=== PATIENT | male | born 1945 | race Hispanic/Latino ===

== ENCOUNTER 2021-03-02 12:59 | Emergency (ER) | payer MEDICARE, OTHER ==
[~2021-03-02] VITALS: Ht 167.6 cm; Wt 73.9 kg
[~2021-03-02 12:59] MED LIST: AMLODIPINE BESYL5 MG PO; ATORVASTATIN CA20 MG PO; CYCLOBENZAPRINE5 MG PO; GLIPIZIDE10 MG PO; METFORMIN HCL500 MG PO; OMEPRAZOLE40 MG PO; PAROXETINE HCL20 MG PO; TYLENOL WITH C1 EACH PO
[2021-03-02 14:14] LABS: BASOPHILS # (AUTO) 0.1 (0.0-0.1); BASOPHILS % 0.4 % (0.0-1.0); EOSINOPHILS # (AUTO) 0.2 (0.0-0.4); HEMATOCRIT 36.4 % (38.2-49.6); HEMOGLOBIN 11.8 g/dL (14.0-18.0); LYMPHOCYTES # (AUTO) 3.5 (1.0-3.2); LYMPHOCYTES % 28.1 % (18.0-39.1); MEAN CORPUSCULAR HEMOGLOBIN 27.4 pg (28-32); MEAN CORPUSCULAR HGB CONC 32.4 g/dL (31-35); MEAN CORPUSCULAR VOLUME 84.7 fL (81-99); MONOCYTES # (AUTO) 0.9 (0.2-0.8); MONOCYTES % 7.3 % (4.4-11.3); NEUTROPHILS # (AUTO) 7.6 (2.1-6.9); NEUTROPHILS % 61.9 % (38.7-80.0); PLATELET COUNT 299 x10e3/uL (140-360); RED CELL DISTRIBUTION WIDTH 15.9 % (11.7-14.4)
[2021-03-02 14:23] LABS: ANION GAP 15.2 mmol/L (8-16); CALCIUM 8.6 mg/dL (8.4-10.2); CREATININE, SERUM 1.31 mg/dL (0.72-1.25); POTASSIUM 5.2 mmol/L (3.5-5.1)
[2021-03-02] MEDS ORDERED: SODIUM CHLORIDE 0.9% 1000ML 1,000 ML IV SCH (14:45)
[2021-03-02 16:36] LABS: ANION GAP 14.8 mmol/L (8-16); BLOOD UREA NITROGEN 27 mg/dL (7-26); BUN/CREATININE RATIO 23 (6-25); CALCIUM 8.2 mg/dL (8.4-10.2); CARBON DIOXIDE 22 mmol/L (22-29); CHLORIDE 106 mmol/L (98-107); CREATININE, SERUM 1.15 mg/dL (0.72-1.25); EST GLOMERULAR FILTRATION RATE > 60 ML/MIN (60-); POTASSIUM 4.8 mmol/L (3.5-5.1); SODIUM 138 mmol/L (136-145)
[2021-03-02 16:38] LABS: GLUCOSE 59 mg/dL (74-118)
== END 2021-03-02 17:38 | disposition home or self-care (01) ==
LOC: ER 13:35
DX: E87.5 Hyperkalemia (principal); E11.649 Type 2 diabetes mellitus with hypoglycemia without coma; I10 Essential (primary) hypertension; E78.5 Hyperlipidemia, unspecified; R94.31 Abnormal electrocardiogram [ECG] [EKG]
CPT/HCPCS: 36415; 80048; 82948; 85025; 93005; 99284; J7030

== ENCOUNTER 2021-08-11 12:34 | Emergency (ER) | payer MEDICARE, OTHER ==
[~2021-08-11] VITALS: Ht 167.6 cm; Wt 73.9 kg
== END 2021-08-11 14:21 | disposition home or self-care (01) ==
LOC: ER 13:01
DX: M79.672 Pain in left foot (principal); E11.40 Type 2 diabetes mellitus with diabetic neuropathy, unspecified; I10 Essential (primary) hypertension; E78.5 Hyperlipidemia, unspecified
CPT/HCPCS: 99283

== ENCOUNTER 2022-07-04 10:15 | Emergency (ER) | payer MEDICARE, OTHER ==
[~2022-07-04] VITALS: Ht 167.6 cm; Wt 73.9 kg
[2022-07-04] MEDS ORDERED: IBUPROFEN 600 MG TAB PO STA (10:40)
[2022-07-04] MEDS ORDERED: NAPROXEN375 M1 PO (12:04)
== END 2022-07-04 12:08 | disposition home or self-care (01) ==
LOC: ER 10:21
DX: S20.213A Contusion of bilateral front wall of thorax, initial encounter (principal); E11.9 Type 2 diabetes mellitus without complications; I10 Essential (primary) hypertension; E78.5 Hyperlipidemia, unspecified; W01.0XXA Fall on same level from slipping, tripping and stumbling without subsequent striking against object, initial encounter; Y93.K1 Activity, walking an animal; Z79.84 Long term (current) use of oral hypoglycemic drugs
CPT/HCPCS: 71111; 99283

== ENCOUNTER 2024-05-18 13:01 | Inpatient (IN) | payer MEDICARE, OTHER ==
[2024-05-18] VITALS (12 sets, daily range): BP systolic 150–182; BP diastolic 64–165; PULSE 46–85; RESP 9–20; TEMP 97.3–97.9; O2SAT 95–99
[~2024-05-18] VITALS: Ht 167.6 cm; Wt 75.3 kg
[~2024-05-18 13:01] MED LIST changes: +NAPROXEN375 M1 PO
[2024-05-18] MEDS: MUPIROCIN 2% OINT 22 GM TUBE TOP SCH (13:30)
[2024-05-18 13:31] LABS: BASOPHILS % 0.3 % (0.0-1.0); EOSINOPHILS # (AUTO) 0.2 (0.0-0.4); HEMATOCRIT 27.9 % (38.2-49.6); HEMOGLOBIN 9.3 g/dL (14.0-18.0); LYMPHOCYTES # (AUTO) 2.3 (1.0-3.2); LYMPHOCYTES % 19.5 % (18.0-39.1); MEAN CORPUSCULAR HEMOGLOBIN 31.7 pg (28-32); MEAN CORPUSCULAR HGB CONC 33.3 g/dL (31-35); MEAN CORPUSCULAR VOLUME 95.2 fL (81-99); MONOCYTES # (AUTO) 0.6 (0.2-0.8); MONOCYTES % 4.9 % (4.4-11.3); NEUTROPHILS # (AUTO) 8.4 (2.1-6.9); NEUTROPHILS % 72.7 % (38.7-80.0); PLATELET COUNT 279 x10e3/uL (140-360); RED BLOOD COUNT 2.93 x10e6/uL (4.3-5.7); RED CELL DISTRIBUTION WIDTH 12.8 % (11.7-14.4); WHITE BLOOD COUNT 11.53 x10e3/uL (4.8-10.8)
[2024-05-18 13:47] LABS: INR 1.01
[2024-05-18] MEDS: ASPIRIN 81 MG CHEW TAB PO ONE (13:48)
[2024-05-18 14:03] LABS: ALANINE AMINOTRANSFERASE 66 IU/L (0-55); ALBUMIN 2.9 g/dL (3.5-5.0); ALBUMIN/GLOBULIN RATIO 1.1 (0.8-2.0); ALKALINE PHOSPHATASE 94 IU/L (40-150); BILIRUBIN,TOTAL 0.2 mg/dL (0.2-1.2); BLOOD UREA NITROGEN 46 mg/dL (7-26); BUN/CREATININE RATIO 17 (6-25); CALCIUM 7.9 mg/dL (8.4-10.2); CARBON DIOXIDE 19 mmol/L (22-29); CHLORIDE 105 mmol/L (98-107); EST GLOMERULAR FILTRATION RATE 23 ML/MIN (>=60); GLUCOSE 257 mg/dL (74-118); SODIUM 131 mmol/L (136-145); TOTAL PROTEIN 5.6 g/dL (6.5-8.1)
[2024-05-18 14:09] LABS: TROPONIN I < 0.001 ng/mL (0-0.300)
[2024-05-18] MEDS ORDERED: DEXTROSE 50% SYRINGE 50 ML IV ONE (14:17)
[2024-05-18] MEDS ORDERED: SODIUM BICARBONATE 8.4% SYRING 50 ML ONE (14:17)
[2024-05-18] MEDS ORDERED: INSULIN REGULAR, HUMAN 100 UNIT/1 ML ONE (14:18)
[2024-05-18] MEDS: CALCIUM GLUC 1 G/50 ML NACL 50 ML IV SCH ×3 (15:00→19:00)
[2024-05-18] MEDS: ALBUTEROL SULF 0.083% NEB SOLN 3 ML NEB NEB STA ×2 (15:18→17:41)
[2024-05-18] MEDS ORDERED: DEXTROSE 50% SYRINGE 50 ML IV PRN (15:30)
[2024-05-18] MEDS ORDERED: ONDANSETRON HCL INJ 2MG/ML 2ML 2 MG/ML VIAL IV PRN (15:30)
[2024-05-18] MEDS: DEXTROSE 50% SYRINGE 50 ML IV STA ×2 (16:09→17:28)
[2024-05-18] MEDS: SODIUM BICARBONATE 8.4% INJ 50 ML SYR IV STA ×2 (16:09→17:32)
[2024-05-18] MEDS: INSULIN REGULAR, HUMAN 100 UNIT/1 ML IV ONE ×2 (16:09→17:36)
[2024-05-18] MEDS: INSULIN REGULAR, HUMAN 100 UNIT/1 ML SQ SCH (16:30)
[2024-05-18 20:05] LABS: ANION GAP 15.1 mmol/L (8-16); CALCIUM 8.8 mg/dL (8.4-10.2); CREATININE, SERUM 2.35 mg/dL (0.72-1.25); POTASSIUM 5.1 mmol/L (3.5-5.1)
[2024-05-18] MEDS: GENTAMICIN SULFATE 40 MG/ML 2 ML VIAL ONE (20:55)
[2024-05-18] MEDS: SODIUM CHLORIDE 0.9% 250ML 0 ML ONE (20:56)
[2024-05-18] MEDS: LIDOCAINE HCL 2% LOCAL 20 ML VIAL ONE (20:56)
[2024-05-18] MEDS: SODIUM CHLORIDE 0.9% 1000ML 0 ML ONE (20:56)
[2024-05-18] MEDS: SODIUM CHLORIDE 0.9% 500ML 0 ML ONE (20:56)
[2024-05-18] MEDS: Vancomycin IV 1 GM VIAL ONE (20:56)
[2024-05-18] MEDS: FENTANYL CITRATE/PF 100MCG/2 ML INJ ONE (20:57)
[2024-05-18] MEDS: IOPAMIDOL 610MG/1ML 300 MG/ML VIAL IV ONE (20:57)
[2024-05-18] MEDS: MIDAZOLAM HCL 2 MG/2 ML VIAL ONE (20:57)
[2024-05-18] MEDS: FUROSEMIDE INJ 10 MG/ML 2 ML VIAL IV ONE (20:59)
[2024-05-18] MEDS: AMLODIPINE BESYLATE 5 MG TAB PO SCH (21:00)
[2024-05-18] MEDS: INSULIN GLARGINE 100 UNITS/ML VIAL SQ SCH (21:00)
[2024-05-18] MEDS: SODIUM BICARBONATE 8.4% SYRING 50 ML in SODIUM CHLORIDE 0.45% 1,000 ML IV ONE (21:00)
[2024-05-18] MEDS: SOD POLYSTYRENE SULFONATE SUSP 15 GM/60 ML BTL PO ONE ×2 (21:04)
[2024-05-18] MEDS: ATORVASTATIN 20 MG TAB PO SCH (21:07)
[2024-05-19] VITALS (17 sets, daily range): BP systolic 137–178; BP diastolic 56–156; PULSE 45–66; RESP 6–26; TEMP 97.9–98.3; O2SAT 87–100
[2024-05-19] MEDS: SOD POLYSTYRENE SULFONATE SUSP 15 GM/60 ML BTL ONE (04:16)
[2024-05-19 06:29] LABS: BILIRUBIN,URINE NEGATIVE (NEGATIVE); CLARITY,URINE CLEAR (CLEAR); COLOR,URINE YELLOW (YELLOW); GLUCOSE, URINE NEGATIVE (NEGATIVE); KETONES,URINE NEGATIVE (NEGATIVE); LEUKOCYTE ESTERASE ,URINE NEGATIVE (NEGATIVE); NITRITE,URINE NEGATIVE (NEGATIVE); PH,URINE 7.5 (5 - 7); PROTEIN,URINE DIPSTICK 2+ (NEGATIVE); URINE UROBILINOGEN 0.2 mg/dL (0.2 - 1)
[2024-05-19] MEDS ORDERED: ATROPINE SULFATE 1 MG/ML VIAL IV PRN (06:35)
[2024-05-19 06:47] LABS: BACTERIA,URINE RARE /HPF; RBC,URINE 21-50 /HPF (0-5); WBC,URINE (MAN) 0-5 /HPF (0-5)
[2024-05-19 07:03] LABS: BASOPHILS % 0.2 % (0.0-1.0); EOSINOPHILS # (AUTO) 0.3 (0.0-0.4); EOSINOPHILS % 2.4 % (0.0-6.0); HEMATOCRIT 32.6 % (38.2-49.6); HEMOGLOBIN 10.7 g/dL (14.0-18.0); MEAN CORPUSCULAR HEMOGLOBIN 31.1 pg (28-32); MEAN CORPUSCULAR HGB CONC 32.8 g/dL (31-35); MEAN CORPUSCULAR VOLUME 94.8 fL (81-99); MONOCYTES # (AUTO) 0.8 (0.2-0.8); MONOCYTES % 6.2 % (4.4-11.3); NEUTROPHILS # (AUTO) 8.5 (2.1-6.9); NEUTROPHILS % 66.8 % (38.7-80.0); PLATELET COUNT 312 x10e3/uL (140-360); RED BLOOD COUNT 3.44 x10e6/uL (4.3-5.7); RED CELL DISTRIBUTION WIDTH 12.7 % (11.7-14.4); WHITE BLOOD COUNT 12.65 x10e3/uL (4.8-10.8)
[2024-05-19 07:58] LABS: ANION GAP 13.5 mmol/L (8-16); CALCIUM 8.3 mg/dL (8.4-10.2); CREATININE, SERUM 1.82 mg/dL (0.72-1.25); POTASSIUM 4.5 mmol/L (3.5-5.1)
[2024-05-19 08:20] LABS: MAGNESIUM 1.9 MG/DL (1.3-2.1); PHOSPHORUS 3.8 MG/DL (2.3-4.7)
[2024-05-19] MEDS: PANTOPRAZOLE SOD 40 MG TABEC PO SCH (08:48)
[2024-05-19] MEDS: PAROXETINE HCL 20 MG TAB PO SCH (08:49)
[2024-05-19 08:55] LABS: THYROID STIMULATING HORMONE 0.965 uIU/mL (0.350-4.940)
[2024-05-19 09:00] LABS: CREATINE KINASE 118 IU/L (30-200)
[2024-05-19 09:13] LABS: TROPONIN I < 0.001 ng/mL (0-0.300)
[2024-05-19] MEDS ORDERED: FLOMAX0.4 MG PO (15:48)
[2024-05-19] MEDS ORDERED: FAMOTIDINE20 MG PO (15:49)
[2024-05-19] MEDS ORDERED: DIOVAN80 MG PO (15:52)
[2024-05-19 16:22] LABS: CREATINE KINASE 108 IU/L (30-200)
[2024-05-19 16:30] LABS: TROPONIN I < 0.001 ng/mL (0-0.300)
[2024-05-19] MEDS ORDERED: COREG12.5 MG PO (18:44)
[2024-05-19] MEDS ORDERED: PRECOSE25 MG PO (18:46)
[2024-05-19] MEDS ORDERED: MULTI-VITAMIN1 EACH PO (18:48)
[2024-05-19] MEDS ORDERED: VITAMIN D325 MCG (18:48)
[2024-05-19] MEDS ORDERED: FUROSEMIDE40 MG PO (18:49)
[2024-05-20] VITALS (11 sets, daily range): BP systolic 124–175; BP diastolic 51–77; PULSE 55–79; RESP 12–19; TEMP 98–99.1; O2SAT 95–100
[2024-05-20 06:28] LABS: BASOPHILS % 0.2 % (0.0-1.0); EOSINOPHILS # (AUTO) 0.4 (0.0-0.4); EOSINOPHILS % 3.3 % (0.0-6.0); HEMATOCRIT 32.2 % (38.2-49.6); HEMOGLOBIN 10.7 g/dL (14.0-18.0); LYMPHOCYTES # (AUTO) 2.7 (1.0-3.2); LYMPHOCYTES % 23.5 % (18.0-39.1); MEAN CORPUSCULAR HGB CONC 33.2 g/dL (31-35); MEAN CORPUSCULAR VOLUME 93.3 fL (81-99); MONOCYTES # (AUTO) 0.8 (0.2-0.8); MONOCYTES % 6.5 % (4.4-11.3); NEUTROPHILS # (AUTO) 7.7 (2.1-6.9); NEUTROPHILS % 66.2 % (38.7-80.0); PLATELET COUNT 305 x10e3/uL (140-360); RED BLOOD COUNT 3.45 x10e6/uL (4.3-5.7); RED CELL DISTRIBUTION WIDTH 12.5 % (11.7-14.4); WHITE BLOOD COUNT 11.66 x10e3/uL (4.8-10.8)
[2024-05-20 06:55] LABS: ALBUMIN 3.2 g/dL (3.5-5.0); ALBUMIN/GLOBULIN RATIO 1.1 (0.8-2.0); ANION GAP 13.7 mmol/L (8-16); BILIRUBIN,TOTAL 0.3 mg/dL (0.2-1.2); CALCIUM 8.3 mg/dL (8.4-10.2); CREATININE, SERUM 1.94 mg/dL (0.72-1.25); POTASSIUM 4.7 mmol/L (3.5-5.1); TOTAL PROTEIN 6.1 g/dL (6.5-8.1)
[2024-05-20] MEDS: HYDRALAZINE HCL 20 MG/ML VIAL IV PRN (10:10)
[2024-05-20] MEDS: NIFEDIPINE CR 30 MG TAB PO ONE (10:16)
[2024-05-20] MEDS ORDERED: ONDANSETRON HCL 4 MG ORAL DISINTEGRATING TAB PO PRN (16:00)
== END 2024-05-20 17:55 | disposition home or self-care (01) | DRG 641 ==
LOC: ER 13:17 → ERHOLD 13:35 → ICU 18:36 → MED/SURG 05-20 06:31
PROVIDERS: ADMIT Internal Medicine; ATTEND Internal Medicine
DX: E87.5 Hyperkalemia (principal); N39.0 Urinary tract infection, site not specified; N17.9 Acute kidney failure, unspecified; E11.22 Type 2 diabetes mellitus with diabetic chronic kidney disease; E11.42 Type 2 diabetes mellitus with diabetic polyneuropathy; I12.9 Hypertensive chronic kidney disease with stage 1 through stage 4 chronic kidney disease, or unspecified chronic kidney disease; E11.65 Type 2 diabetes mellitus with hyperglycemia; N18.32 Chronic kidney disease, stage 3b; R00.1 Bradycardia, unspecified; R55 Syncope and collapse; E78.5 Hyperlipidemia, unspecified; K21.9 Gastro-esophageal reflux disease without esophagitis; Z11.52 Encounter for screening for COVID-19; Z79.84 Long term (current) use of oral hypoglycemic drugs
CPT/HCPCS: 36415; 71045; 80048; 80053; 81001; 82550; 82948; 83036; 83735; 83880; 84100; 84443; 84484; 85025; 85610; 93005; 93306; 94799; 96372; 99285; J0360; J1580; J1815; J2001; J2250; J7030; J7040; J7050; J7799; U0002

== ENCOUNTER 2024-07-15 12:21 | Inpatient (IN) | payer MEDICARE, OTHER ==
[~2024-07-15] VITALS: Ht 167.6 cm; Wt 73.5 kg
[~2024-07-15 12:21] MED LIST changes: +COREG12.5 MG PO; +DIOVAN80 MG PO; +FAMOTIDINE20 MG PO; +FLOMAX0.4 MG PO; +FUROSEMIDE40 MG PO; +MULTI-VITAMIN1 EACH PO; +PRECOSE25 MG PO; +VITAMIN D325 MCG
[2024-07-15 13:03] LABS: BASOPHILS % 0.2 % (0.0-1.0); EOSINOPHILS # (AUTO) 0.3 (0.0-0.4); EOSINOPHILS % 2.1 % (0.0-6.0); HEMATOCRIT 30.4 % (38.2-49.6); HEMOGLOBIN 10.1 g/dL (14.0-18.0); LYMPHOCYTES # (AUTO) 3.3 (1.0-3.2); MEAN CORPUSCULAR HEMOGLOBIN 30.7 pg (28-32); MEAN CORPUSCULAR HGB CONC 33.2 g/dL (31-35); MEAN CORPUSCULAR VOLUME 92.4 fL (81-99); MONOCYTES # (AUTO) 0.8 (0.2-0.8); NEUTROPHILS # (AUTO) 9.2 (2.1-6.9); NEUTROPHILS % 67.3 % (38.7-80.0); PLATELET COUNT 365 x10e3/uL (140-360); RED BLOOD COUNT 3.29 x10e6/uL (4.3-5.7); RED CELL DISTRIBUTION WIDTH 12.6 % (11.7-14.4); WHITE BLOOD COUNT 13.69 x10e3/uL (4.8-10.8)
[2024-07-15 13:18] LABS: ALANINE AMINOTRANSFERASE 13 IU/L (0-55); ALBUMIN 3.3 g/dL (3.5-5.0); ALKALINE PHOSPHATASE 87 IU/L (40-150); ANION GAP 15.2 mmol/L (8-16); BILIRUBIN,TOTAL 0.2 mg/dL (0.2-1.2); BLOOD UREA NITROGEN 63 mg/dL (7-26); BUN/CREATININE RATIO 23 (6-25); CALCIUM 8.5 mg/dL (8.4-10.2); CARBON DIOXIDE 19 mmol/L (22-29); CHLORIDE 104 mmol/L (98-107); CREATININE, SERUM 2.75 mg/dL (0.72-1.25); EST GLOMERULAR FILTRATION RATE 23 ML/MIN (>=60); GLUCOSE 253 mg/dL (74-118); SODIUM 133 mmol/L (136-145); TOTAL PROTEIN 6.7 g/dL (6.5-8.1)
[2024-07-15 13:26] LABS: POTASSIUM 5.2 mmol/L (3.5-5.1); TROPONIN I < 0.05 ng/mL (0.0-0.40)
[2024-07-15] MEDS: CALCIUM GLUC 1 G/50 ML NACL 50 ML IV ONE (15:00)
[2024-07-15] MEDS: SOD POLYSTYRENE SULFONATE SUSP 15 GM/60 ML BTL PO ONE (15:01)
[2024-07-15] MEDS: SODIUM CHLORIDE 0.9% 500ML 500 ML IV STA (15:01)
[2024-07-15 15:15] VITALS: PULSE 69; RESP 18; O2SAT 98
[2024-07-15] MEDS ORDERED: DEXTROSE 50% SYRINGE 50 ML IV PRN (18:30)
[2024-07-15 18:59] VITALS: TEMP 98.7
[2024-07-15 20:17] VITALS: PULSE 67; RESP 18; O2SAT 98
[2024-07-15] MEDS: INSULIN LISPRO 100 UNIT/1 ML 3ML VIAL SQ SCH (21:00)
[2024-07-15] MEDS ORDERED: BISACODYL 10 MG SUPP PR PRN (21:45)
[2024-07-15] MEDS ORDERED: ONDANSETRON HCL INJ 2MG/ML 2ML 2 MG/ML VIAL IV PRN (21:45)
[2024-07-15] MEDS ORDERED: ACETAMINOPHEN 325 MG TAB PO PRN (21:45)
[2024-07-15] MEDS: HEPARIN SOD (PORCINE) 5,000 UNIT/ML VIAL SC SCH (22:13)
[2024-07-15 22:44] LABS: BILIRUBIN,URINE NEGATIVE (NEGATIVE); CLARITY,URINE CLEAR (CLEAR); COLOR,URINE YELLOW (YELLOW); GLUCOSE, URINE NEGATIVE (NEGATIVE); KETONES,URINE NEGATIVE (NEGATIVE); LEUKOCYTE ESTERASE ,URINE NEGATIVE (NEGATIVE); NITRITE,URINE NEGATIVE (NEGATIVE); PH,URINE 6 (5 - 7); PROTEIN,URINE DIPSTICK 2+ (NEGATIVE); URINE UROBILINOGEN 0.2 mg/dL (0.2 - 1)
[2024-07-15 22:48] LABS: BACTERIA,URINE MODERATE /HPF; EPITHELIAL CELLS,URINE RARE /LPF; RBC,URINE 0-5 /HPF (0-5); WBC,URINE (MAN) 0-5 /HPF (0-5)
[2024-07-15 22:49] LABS: INR 0.99; PROTHROMBIN TIME 13.6 seconds (11.9-14.5)
[2024-07-15 23:45] VITALS: PULSE 63; RESP 15
[2024-07-15 23:52] VITALS: BP 156/70; PULSE 69; RESP 20; TEMP 98.3; O2SAT 100
[2024-07-16] VITALS (10 sets, daily range): BP systolic 133–170; BP diastolic 66–77; PULSE 57–84; RESP 17–20; TEMP 98.3–99.8; O2SAT 95–100
[2024-07-16] MEDS ORDERED: VALSARTAN80 MG (00:39)
[2024-07-16] MEDS ORDERED: CARVEDILOL12.5 MG PO (00:39)
[2024-07-16 06:04] LABS: BASOPHILS % 0.3 % (0.0-1.0); EOSINOPHILS # (AUTO) 0.3 (0.0-0.4); EOSINOPHILS % 2.1 % (0.0-6.0); HEMATOCRIT 30.4 % (38.2-49.6); LYMPHOCYTES # (AUTO) 3.4 (1.0-3.2); LYMPHOCYTES % 25.6 % (18.0-39.1); MEAN CORPUSCULAR HEMOGLOBIN 30.4 pg (28-32); MEAN CORPUSCULAR HGB CONC 32.9 g/dL (31-35); MEAN CORPUSCULAR VOLUME 92.4 fL (81-99); MONOCYTES # (AUTO) 0.8 (0.2-0.8); MONOCYTES % 5.9 % (4.4-11.3); NEUTROPHILS # (AUTO) 8.7 (2.1-6.9); NEUTROPHILS % 65.6 % (38.7-80.0); PLATELET COUNT 374 x10e3/uL (140-360); RED BLOOD COUNT 3.29 x10e6/uL (4.3-5.7); RED CELL DISTRIBUTION WIDTH 12.6 % (11.7-14.4); WHITE BLOOD COUNT 13.21 x10e3/uL (4.8-10.8)
[2024-07-16 06:15] LABS: ANION GAP 13.7 mmol/L (8-16); CALCIUM 8.8 mg/dL (8.4-10.2); CREATININE, SERUM 2.09 mg/dL (0.72-1.25); PHOSPHORUS 3.8 MG/DL (2.3-4.7); POTASSIUM 3.7 mmol/L (3.5-5.1)
[2024-07-16] MEDS: TAMSULOSIN HCL 0.4 MG CAP PO SCH (08:33)
[2024-07-16] MEDS: FAMOTIDINE 20 MG TAB PO SCH (08:33)
[2024-07-16] MEDS: DOCUSATE SODIUM 100 MG CAP PO SCH (08:33)
[2024-07-16] MEDS: ATORVASTATIN 20 MG TAB PO SCH (08:33)
[2024-07-16] MEDS: SENNOSIDES 8.6 MG TAB PO SCH (08:33)
[2024-07-16] MEDS: PANTOPRAZOLE SOD 40 MG TABEC PO SCH (08:33)
[2024-07-16] MEDS: HYDRALAZINE HCL 20 MG/ML VIAL IV PRN (08:38)
[2024-07-16 10:10] LABS: FERRITIN 100.4 ng/mL (21.81-274.66)
[2024-07-17 00:39] VITALS: BP 133/65; PULSE 80; RESP 18; TEMP 98.8; O2SAT 100
[2024-07-17 04:00] VITALS: BP 159/73; PULSE 69; RESP 18; TEMP 98.5; O2SAT 98
[2024-07-17 05:43] LABS: BASOPHILS % 0.2 % (0.0-1.0); EOSINOPHILS # (AUTO) 0.3 (0.0-0.4); EOSINOPHILS % 1.9 % (0.0-6.0); HEMATOCRIT 32.4 % (38.2-49.6); HEMOGLOBIN 10.6 g/dL (14.0-18.0); LYMPHOCYTES # (AUTO) 3.3 (1.0-3.2); LYMPHOCYTES % 25.9 % (18.0-39.1); MEAN CORPUSCULAR HEMOGLOBIN 30.3 pg (28-32); MEAN CORPUSCULAR HGB CONC 32.7 g/dL (31-35); MEAN CORPUSCULAR VOLUME 92.6 fL (81-99); MONOCYTES # (AUTO) 0.8 (0.2-0.8); MONOCYTES % 6.2 % (4.4-11.3); NEUTROPHILS # (AUTO) 8.4 (2.1-6.9); NEUTROPHILS % 65.4 % (38.7-80.0); PLATELET COUNT 386 x10e3/uL (140-360); RED CELL DISTRIBUTION WIDTH 12.6 % (11.7-14.4); WHITE BLOOD COUNT 12.91 x10e3/uL (4.8-10.8)
[2024-07-17 05:54] LABS: ANION GAP 13.9 mmol/L (8-16); CALCIUM 9.2 mg/dL (8.4-10.2); CREATININE, SERUM 2.26 mg/dL (0.72-1.25); POTASSIUM 4.9 mmol/L (3.5-5.1)
[2024-07-17 07:46] VITALS: BP 176/73; PULSE 63; RESP 18; TEMP 99.9; O2SAT 99
[2024-07-17 08:20] VITALS: BP 176/73; PULSE 63; RESP 18; TEMP 99; O2SAT 99
[2024-07-17] MEDS: AMLODIPINE BESYLATE 5 MG TAB PO SCH (08:41)
[2024-07-17 11:32] VITALS: BP 153/67; PULSE 65; RESP 19; TEMP 97.4; O2SAT 99
[2024-07-17 15:33] VITALS: BP 150/63; PULSE 58; RESP 16; TEMP 98.2; O2SAT 100
[2024-07-17] MEDS ORDERED: ACETAMINOPHEN325 M1 PO (17:29)
[2024-07-17] MEDS ORDERED: NORVASC5 MG PO (17:29)
== END 2024-07-17 18:32 | disposition home or self-care (01) | DRG 641 ==
LOC: ER 12:26 → ERHOLD 13:58 → MED/SURG2 23:56
PROVIDERS: ADMIT Internal Medicine; ATTEND Internal Medicine
DX: E87.5 Hyperkalemia (principal); N17.9 Acute kidney failure, unspecified; E87.1 Hypo-osmolality and hyponatremia; R00.1 Bradycardia, unspecified; I45.10 Unspecified right bundle-branch block; I12.9 Hypertensive chronic kidney disease with stage 1 through stage 4 chronic kidney disease, or unspecified chronic kidney disease; E11.22 Type 2 diabetes mellitus with diabetic chronic kidney disease; N18.32 Chronic kidney disease, stage 3b; D72.829 Elevated white blood cell count, unspecified; D64.9 Anemia, unspecified; E78.2 Mixed hyperlipidemia; Z79.899 Other long term (current) drug therapy
CPT/HCPCS: 36415; 71045; 80048; 80053; 81001; 82607; 82728; 82948; 83036; 83540; 83735; 83880; 84100; 84466; 84484; 85025; 85610; 85730; 93005; 94799; 99252; 99284; J0360; J1644; J7040